=== PATIENT | female | born 1970 | race Hispanic/Latino ===

== ENCOUNTER 2018-12-20 22:31 | Emergency (ER) | payer SELFPAY ==
[2018-12-20] MEDS ORDERED: LIDOCAINE HCL 1% 20 ML VIAL ONE (23:29)
[2018-12-20] MEDS ORDERED: BUPIVACAINE/PF 0.5% 30ML VIAL ONE (23:29)
[2018-12-21] MEDS ORDERED: HYDROCODONE/ACETAMINOPHEN 10/325 MG TAB ONE (00:09)
[2018-12-21] MEDS ORDERED: LIDOCAINE HCL-MPF 1% 2ML VIAL ONE (00:09)
[2018-12-21] MEDS ORDERED: CEFTRIAXONE SODIUM 1 GM ONE (00:09)
== END 2018-12-21 00:46 | disposition home or self-care (01) ==
LOC: EDH 22:31
DX: S61.215A Laceration without foreign body of left ring finger without damage to nail, initial encounter (principal); Z72.0 Tobacco use; W23.0XXA Caught, crushed, jammed, or pinched between moving objects, initial encounter; Y93.89 Activity, other specified; Y92.098 Other place in other non-institutional residence as the place of occurrence of the external cause; Y99.8 Other external cause status
CPT/HCPCS: 12001; 73140; 96372; 99283; J0696; J3490 ×2